=== PATIENT | male | born 1995 | race Caucasian/White ===

== ENCOUNTER 2017-01-05 14:39 | Emergency (ER) | payer SELFPAY ==
[~2017-01-05] VITALS: Ht 180.3 cm; Wt 100.0 kg
[~2017-01-05 14:39] MED LIST: CEPHALEXIN500 M1 PO; IBUPROFEN200 M1 PO; RT ALBUTEROL CC18 GM IH
[2017-01-05] MEDS ORDERED: TYLENOL EXTRA500 M2 (14:50)
[2017-01-05] MEDS ORDERED: NORCO 325 MG-51 TA1 PO (16:32)
[2017-01-05 16:49] VITALS: BP 145/77
== END 2017-01-05 17:00 | disposition home or self-care (01) ==
LOC: ED 14:39
DX: M53.3 Sacrococcygeal disorders, not elsewhere classified (principal); V86.99XA Unspecified occupant of other special all-terrain or other off-road motor vehicle injured in nontraffic accident, initial encounter
CPT/HCPCS: J1885; J2270

== ENCOUNTER 2017-01-19 14:01 | Emergency (ER) | payer SELFPAY ==
[~2017-01-19] VITALS: Ht 180.3 cm; Wt 101.5 kg
[~2017-01-19 14:01] MED LIST changes: +NORCO 325 MG-51 TA1 PO; +TYLENOL EXTRA500 M2
[2017-01-19] MEDS ORDERED: ADVIL 200MG TA200 MG PO (14:10)
[2017-01-19] MEDS ORDERED: CYCLOBENZAPRINE10 M1 PO (16:32)
[2017-01-19] MEDS ORDERED: NORCO 10-325 T1 EACH PO (16:32)
[2017-01-19 16:37] VITALS: BP 112/72
== END 2017-01-19 16:52 | disposition home or self-care (01) ==
LOC: ED 14:01
DX: S30.0XXA Contusion of lower back and pelvis, initial encounter (principal); M62.830 Muscle spasm of back; V86.99XA Unspecified occupant of other special all-terrain or other off-road motor vehicle injured in nontraffic accident, initial encounter
CPT/HCPCS: J1885; J2270; J2405

== ENCOUNTER 2017-02-23 00:30 | Emergency (ER) | payer SELFPAY ==
[~2017-02-23] VITALS: Ht 180.3 cm; Wt 102.3 kg
[~2017-02-23 00:30] MED LIST changes: +ADVIL 200MG TA200 MG PO; +CYCLOBENZAPRINE10 M1 PO; +NORCO 10-325 T1 EACH PO
[2017-02-23] MEDS ORDERED: KETOROLAC10 MG PO (02:07)
[2017-02-23 02:21] VITALS: BP 142/93
== END 2017-02-23 02:21 | disposition home or self-care (01) ==
LOC: ED 00:30
DX: M25.572 Pain in left ankle and joints of left foot (principal); M25.571 Pain in right ankle and joints of right foot; M79.662 Pain in left lower leg; M79.661 Pain in right lower leg; V86.56XA Driver of dirt bike or motor/cross bike injured in nontraffic accident, initial encounter; Y92.008 Other place in unspecified non-institutional (private) residence as the place of occurrence of the external cause
CPT/HCPCS: J1885